=== PATIENT | male | born 1970 | race Caucasian/White ===

== ENCOUNTER 2018-06-09 14:42 | Emergency (ER) | payer SELFPAY ==
[2018-06-09 14:48] VITALS: BP 117/78
--- NOTE | 2018-06-09 15:32 | ER Document Report ---
HPI - HPI Patient complains to provider of: Fell on his buttocks Pain Level: 2 Context: 47 yo male visiting fell down 4 rungs of ladder from RV ladder onto buttocks on cement about 2 hours ago. which is too uncomfortable to sit on the left side now. NO radiculopathy. Associated Symptoms: None Exacerbated by: Sitting, Movement Relieved by: Denies Similar symptoms previously: No Recently seen / treated by doctor: No - ROS ROS below otherwise negative: Yes Systems Reviewed and Negative: Yes All other systems reviewed and negative Past Medical History - General Information source: Patient - Social History Smoking Status: Unknown if Ever Smoked Frequency of alcohol use: None Drug Abuse: None Lives with: Family Family History: Reviewed & Not Pertinent - Medical History Medical History: Negative Surgical Hx: Negative Vertical Provider Document - CONSTITUTIONAL Agree With Documented VS: Yes Exam Limitations: No Limitations General Appearance: No Apparent Distress - INFECTION CONTROL TRAVEL OUTSIDE OF THE [place] IN LAST 30 DAYS: No - NECK Neck: Supple - non tender - RESPIRATORY Respiratory: Breath Sounds Normal, No Respiratory Distress - CARDIOVASCULAR Cardiovascular: Regular Rate, Regular Rhythm - BACK Back: Normal Inspection Notes: mild tender lower l spine and coccyx - MUSCULOSKELETAL/EXTREMETIES Musculoskeletal/Extremeties: LAUREL HUGHES - NEURO Level of Consciousness: Alert Motor/Sensory: No Motor Deficit, No Sensory Deficit - DERM Integumentary: No Rash Course - Re-evaluation Re-evalutation: 06/09/18 16:38 X-rays negative per radiologist patient is stating that Motrin and Tylenol will not relieve his pain. - Vital Signs Vital signs: Temp Pulse Resp BP Pulse Ox 97.6 F 79 16 117/78 96 06/09/18 14:46 06/09/18 14:46 06/09/18 14:46 06/09/18 14:46 06/09/18 14:46 Discharge - Discharge Clinical Impression: Coccyx contusion, Left sacral iliac pain after fall Condition: Good Disposition: HOME, SELF-CARE Instructions: Acetaminophen, Coccyx Injury ([facility]), Ibuprofen (General) ([facility]), Low Back Pain ([facility]), Ultram ([facility]), Warm Packs ([facility]) Additional Instructions: Sit on soft pillow Tylenol up to 4000 mg a day for pain Motrin 3 times a day for inflammation Ultram every 4-6 hours for pain Return to the emergency room any concerns Copy of negative imaging report given to you Prescriptions: Ibuprofen [Motrin 600 mg Tablet] 600 mg PO Q8HP PRN #30 tablet PRN Reason: Tramadol HCl [Ultram 50 mg Tablet] 50 mg PO ASDIR PRN #15 tablet PRN Reason: Forms: Return to Work
[2018-06-09] MEDS ORDERED: IBUPROFEN 800 MG TABLET PO ONE (15:37)
[2018-06-09] MEDS: ACETAMINOPHEN 325 MG TABLET PO ONE ×2 (15:42→15:44)
--- NOTE | 2018-06-09 16:24 | RADIOLOGY REPORT (SQ) ---
EXAM DESCRIPTION: L SPINE WHOLE COMPLETED DATE/TIME: 06/09/2018 4:13 pm REASON FOR STUDY: fall on buttocks COMPARISON: None. NUMBER OF VIEWS: Five views including obliques. TECHNIQUE: AP, lateral, oblique, and sacral radiographic images acquired of the lumbar spine. LIMITATIONS: None. FINDINGS: MINERALIZATION: Normal. SEGMENTATION: Normal. No transitional anatomy. ALIGNMENT: Normal. VERTEBRAE: Maintained height. No fracture or worrisome bone lesion. Mild arthritic changes. DISCS: Disc spaces maintained. Mild osteophyte formation. POSTERIOR ELEMENTS: Pedicles and facets are intact. No pars defect or posterior arch defects. HARDWARE: None in the spine. PARASPINAL SOFT TISSUES: Normal. PELVIS: Intact as visualized. No fractures or worrisome bone lesions. SI joints intact. OTHER: Old appearing nondisplaced fracture right 10th rib. IMPRESSION: No acute fractures identified. TECHNICAL DOCUMENTATION: JOB ID: [id number] [employer]- All Rights Reserved Reading location - IP/workstation name: [facility]
--- NOTE | 2018-06-09 16:26 | RADIOLOGY REPORT (SQ) ---
EXAM DESCRIPTION: SACRUM AND COCCYX COMPLETED DATE/TIME: 06/09/2018 4:13 pm REASON FOR STUDY: fall on buttocks COMPARISON: None. NUMBER OF VIEWS: Three views. TECHNIQUE: AP, lateral, and tilt views of the sacrum and coccyx. LIMITATIONS: None. FINDINGS: MINERALIZATION: Normal. BONES: No acute fracture or dislocation. No worrisome bone lesions. SOFT TISSUES: No metallic foreign bodies. OTHER: No other significant finding. IMPRESSION: No acute fractures identified. TECHNICAL DOCUMENTATION: JOB ID: [id number] [employer]- All Rights Reserved Reading location - IP/workstation name: [email or web address]
[2018-06-09] MEDS ORDERED: TRAMADOL HCL 50 MG TABLET PO ONE (16:38)
== END 2018-06-09 16:50 | disposition home or self-care (01) ==
LOC: ER 14:42
DX: S30.0XXA Contusion of lower back and pelvis, initial encounter (principal); M53.3 Sacrococcygeal disorders, not elsewhere classified; W11.XXXA Fall on and from ladder, initial encounter
CPT/HCPCS: 72110; 72220; 99283